=== PATIENT | female | born 1965 | race African-American/Black ===

== ENCOUNTER 2016-11-29 02:41 | Emergency (ER) | payer OTHER, MEDICAID ==
[~2016-11-29] VITALS: Ht 165.1 cm; Wt 95.3 kg
[~2016-11-29 02:41] MED LIST: IBUPROFEN600 MG PO; VALIUM5 MG PO
--- NOTE | 2016-11-29 02:48 | Emergency Room Report ---
History of Present Illness General Chief Complaint: To Be Triaged Source: Patient Present Illness HPI [id number] [employer] patient with pain to right knee for 2 months. patient hit patella October 08 then again October 22. had xray at outside facility which said "no fracture but you have whole the size of a screw in your knee." Has PMD appt end of December History of DM Pain recently with walking Denies fever/chills, redness over joint, pain with flexion Allergies: Coded Allergies: No Known Allergies (Unverified , 04/05/12) Patient History Past Medical History: DM Past Surgical History: none Pertinent Family History: none Social History: Denies: alcohol use, drug use, smoking Now: No Immunizations: UTD Reviewed Nursing Documentation: PMH: Agreed, PSxH: Agreed Review of Systems All Other Systems: negative except mentioned in HPI Physical Exam Sp02 EP Interpretation: reviewed, normal General Appearance: normal inspection, well appearing, no apparent distress, alert Head: atraumatic ENT: normal ENT inspection, hearing grossly normal, normal voice Neck: normal inspection, full range of motion, supple, no bony tend Respiratory: normal inspection, lungs clear, normal breath sounds, no respiratory distress, no retraction, no wheezing Gastrointestinal: normal inspection, normal bowel sounds, non tender, soft, no guarding, no hernia Genitourinary: no CVA tenderness Musculoskeletal: normal inspection, back normal, normal range of motion, Adriana' s Sign negative, other - Right knee: No obvious trauma. No effusion. Mild ttp to patella. No ttp to femur, tib/fib. ROM intact Neurologic: normal inspection, alert, oriented x3, responsive, floor attendant III-XII nml as tested, motor strength/tone normal, speech normal Psychiatric: normal inspection, judgement/insight normal, mood/affect normal Skin: normal inspection, normal color, no rash Medical Decision Making Diagnostic Impression: Primary Impression: Fracture of medial condyle of femur Qualified Codes: S72.434A - Nondisplaced fracture of medial condyle of right femur, initial encounter for closed fracture ER Course Given previous Xray and 2x trauma with bizarre patient reported xray finding of "no fracture but large hole" elected to do CT knee Result: small subchondral fx right medial femoral condyle Knee immobilizer provided Advised PMD referral for Orthopedist consult LINDA T#3 as needed Status: improved Disposition: HOME, SELF-CARE Scripts Acetaminophen With Codeine (T#3) (TYLENOL #3 TAB*) Y Tab 1 TAB ORAL Q8H Y for For Pain, #20 TAB Prov: IGLESIA MAHER M.D. 11/29/16 IGLESIA MAHER M.D. Nov 29, 2016 02:48
[2016-11-29] MEDS ORDERED: Ketorolac 60mg Inj IM ONE (04:15)
[2016-11-29] MEDS ORDERED: ACETAMINOPHEN-1 EAC1 ORAL (05:03)
[2016-11-29 05:11] VITALS: BP_SYST 128; BP_SYST 139; BP_DIAS 82; BP_DIAS 89
--- NOTE | 2016-11-29 09:00 | Diagnostic Imaging Report ---
Indication: PAIN, x2 in October, still with pain there is suspected occult patellar fracture Technique: Noncontrast spiral acquisitions obtained through the right knee Multiplanar reconstructions were generated. Total dose length product 317 mGycm. CTDIvol(s) 15 mGy. Radiation dose was minimized using automated exposure control Comparison: None Findings: Small defect in the medial femoral condyle could represent a small osteochondral fracture. No other fractures are evident. The patella is intact. No evidence of patellar fracture. There is minimal the joint effusion. The joint spaces are preserved. There are small superior and inferior pole patellar traction osteophytes. There is a small lucency anterolateral proximal tibia which measures approximately 10 x 6 mm. This is located adjacent to the cortex. Impression: Possible small osteochondral fracture involving the medial femoral condyle recommend MRI for further evaluation. This agrees with the preliminary interpretation provided overnight by [facility] teleradiology service Small lucency involving the proximal tibia. Likewise, MRI should be considered for better characterization. This finding was not reported on the preliminary report, was discussed by phone with Dr. iLndsay at the time of interpretation The CT scanner at [facility] is accredited by the [employer] and the scans are performed using protocols designed to limit radiation exposure to as low as reasonably achievable to attain images of sufficient resolution adequate for diagnostic evaluation.
== END 2016-11-29 05:12 | disposition home or self-care (01) ==
LOC: EMR 03:06
DX: S72.434A Nondisplaced fracture of medial condyle of right femur, initial encounter for closed fracture (principal); E11.9 Type 2 diabetes mellitus without complications; X58.XXXA Exposure to other specified factors, initial encounter; Y92.9 Unspecified place or not applicable; Y99.8 Other external cause status
CPT/HCPCS: 29530; 96372; 99283